=== PATIENT | female | born 1985 | race Asian ===

== ENCOUNTER 2024-01-07 11:58 | Emergency (ER) | payer BC ==
[~2024-01-07] VITALS: Ht 160 cm; Wt 77.1 kg
[2024-01-07 12:04] VITALS: BP_SYST 175; PULSE 119; RESP 20; TEMP 98.3; O2SAT 98
[2024-01-07] MEDS ORDERED: TRAM50TA2 PO (14:14)
[2024-01-07] MEDS ORDERED: IBUP-1969 PO (14:14)
[2024-01-07 15:03] VITALS: BP_SYST 152; PULSE 119; RESP 20; TEMP 98.3; O2SAT 98
== END 2024-01-07 15:04 | disposition home or self-care (01) ==
LOC: SED 11:58
DX: S93.492A Sprain of other ligament of left ankle, initial encounter (principal); X50.1XXA Overexertion from prolonged static or awkward postures, initial encounter; Y93.89 Activity, other specified; Y92.89 Other specified places as the place of occurrence of the external cause; Y99.8 Other external cause status
CPT/HCPCS: 99283